=== PATIENT | male | born 1935 | race Caucasian/White ===

== ENCOUNTER 2020-03-23 23:08 | Inpatient (IN) | payer MEDICARE, BC ==
[~2020-03-23] VITALS: Ht 165.1 cm; Wt 75.7 kg
[2020-03-24 00:06] LABS: BASOPHILS ABSOLUTE AUTO 0.07 K/mm3 (0.00-0.23); BASOPHILS PERCENT AUTO 1 % (0-2); EOSINOPHILS ABSOLUTE AUTO 0.24 K/mm3 (0.00-0.68); EOSINOPHILS PERCENT AUTO 4 % (0-6); Hematocrit 44.1 % (37.0-53.0); IMMATURE GRAN ABSOLUTE AUTO 0.01 K/mm3 (0.00-0.10); IMMATURE GRAN PERCENT AUTO 0 % (0-1); LYMPHOCYTES PERCENT AUTO 23 % (21-46); MONOCYTES ABSOLUTE AUTO 0.71 K/mm3 (0.16-1.47); MONOCYTES PERCENT AUTO 12 % (4-13); Mean Corpuscular HGB 30.4 pg (26.0-34.0); Mean Corpuscular Volume 90 fL (80-100); NEUTROPHILS ABSOLUTE AUTO 3.45 K/mm3 (1.96-9.15); NEUTROPHILS PERCENT AUTO 60 % (41-73); Platelet Count 257 K/mm3 (150-400); RDW Coefficient Variation 12.7 % (11.7-14.2); Red Blood Cell Count 4.93 M/mm3 (4.30-5.90); White Blood Cell Count 5.78 K/mm3 (4.00-11.30)
[2020-03-24 00:33] LABS: Alanine Aminotransfer (ALT/SGP 23 U/L (12-78); Alk Phos 69 U/L (50-136); Anion Gap 6 mmol/L (6-16); Aspartate Aminotrans (AST/SGOT 18 U/L (12-37); Bilirubin, Total 0.3 mg/dL (0.1-1.0); Blood Urea Nitrogen 16 mg/dL (8-24); CO2, Blood 27 mmol/L (21-32); Calcium, Blood 9.7 mg/dL (8.5-10.1); Chloride, Blood 105 mmol/L (98-108); Creatinine, Blood 0.89 mg/dL (0.60-1.20); Globulin, Blood 4.1 g/dL (2.2-4.0); Glomerular Filtration Rate >60 (60-); Glucose, Blood 134 mg/dL (70-99); Potassium, Blood 3.8 mmol/L (3.5-5.5); Sodium, Blood 138 mmol/L (136-145); Total Protein, Blood 8.1 g/dL (6.4-8.2); Troponin I 0.023 ng/mL (0.000-0.040)
[2020-03-24] MEDS ORDERED: BENAZEPRIL-HCT1 EAC3 PO (00:57)
[2020-03-24] MEDS ORDERED: AMLODIPINE BES2.5 MG PO (00:58)
--- NOTE | 2020-03-24 03:59 | NUR ---
0350 PT ADMITTED TO ROOM 340 PER CART FROM ER; DENIES CHEST PAIN OR NAUSEA; ALERT AND ORIENTED X 4; ALL VALUABLES SENT HOME WITH ..
[2020-03-24] MEDS ORDERED: ASPIR 8181 M1 PO (04:09)
[2020-03-24] MEDS ORDERED: VITAMIN D31000 UNIT PO (04:09)
[2020-03-24] MEDS ORDERED: TOCO1000 PO (04:09)
--- NOTE | 2020-03-24 05:14 | NUR ---
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
[2020-03-24 08:42] LABS: CHOL/HDL RATIO 4.3; Cholesterol 191 mg/dL (50-200); HDL Cholesterol 44 mg/dL (>39); LDL/HDL RATIO 2.6; Low Density Lipoprotein Chol 114 mg/dL (0-110); Triglycerides 164 mg/dL (30-160); Very Low Density Lipoprot Chol 32 mg/dL (6-32)
--- NOTE | 2020-03-24 10:29 | NUR ---
Echocardiogram performed.
--- NOTE | 2020-03-24 10:58 | NUR ---
HE AND HIS ARE VISITING WITH THE PEANUT BUTTER MAKER NOW. JD HAS NOT HAD ANY CHEST PAIN OR PRESSURE SINCE ARRIVAL TO THIS ROOM FROM THE ED ABOUT 4 AM. HE DENIES SOB, NAUSEA OR DIZZINESS. HE AMBULATED TO THE BATHROOM AFTER BREAKFAST INDEPENDENTLY. HE IS VOIDING OK AND PASSED GAS. NO PAIN OR SOB ASSOCIATED WITH THE ACTIVITY. I NOTIFIED AND OF THE CRITICAL TROPONIN RESULT OF [id number]. I JUST RECEIVED NEW ORDERS. LOADING DOSE OF [employer] GIVEN. WILL RE-CHECK HIS VS AFTER HIS VISIT WITH THE PEANUT BUTTER MAKER.
--- NOTE | 2020-03-24 12:01 | NUR ---
Upon receiving an admit referral for spiritual care, I visit patient. Patient is sitting up in bed and alert. Patient's spouse, Anna, is bedside. Patient tells me about his health history and the symptoms that brought him into the hospital and the concerns they have. Patient and Anna then engage in a lengthy conversation about their spiritual beliefs and Anna voices several questions regaurd application of Scripture to various situations. They also explain about their lifestyle of living in an RV and traveling. I listen empathically, normalize their concerns and provide pastoral guidance and prayer. Patient and Anna respond well and show signs of being encouraged in their [place]. I will continue to remain available to patient and family.
--- NOTE | 2020-03-24 13:23 | NUR ---
VSS, METOPROLOL WAS STARTED TOO BUT HE REFUSED THE LIPITOR. HE AND HIS SAY THEY HAVE EACH CHOSEN NOT TO TAKE STATINS D/T THE MANY SIDE EFFECTS. HE ATE ALL HIS LUNCH AND IS NOW WATCHING TV.
--- NOTE | 2020-03-24 14:26 | NUR ---
HE REMAINS ASYMPTOMATIC. AT BEDSIDE. NEXT TROPONIN DRAW ABOUT 1540.
--- NOTE | 2020-03-24 16:35 | NUR ---
2ND CRITICAL TROPONIN RESULTED. I NOTIFIED .
--- NOTE | 2020-03-24 18:19 | NUR ---
JUST CAME BACK AND SPOKE WITH JD AND HIS . HE UNDERSTANDS THAT A [facility] SHEARER WILL SEE HIM TOMORROW. PATIENT REMAINS WITHOUT CP OR SOB. HE HAS NO DIFFICULTY EATING, DRINKING OR VOIDING. NO BM TODAY.
--- NOTE | 2020-03-25 04:15 | NUR ---
SHIFT SUMMARY ASSUMED CARE OF PT AT 1900. PT IS A/OX4, DENIES N/T IN EXTREMITES. HEART SOUNDS REGULAR, TELE HAS BEEN SINUS @ 61, DENIES CP, TROPONINS TRENDING DOWN. PT INDEPENDENT TO BATHROOM. PT ASKED FOR SHOWER THIS AM. NO ACUTE EVENTS DURING THE NIGHT. PT SLEPT T/O THE NIGHT. CALL LIGHT IN REACH, BED IN LOWEST POSTION.
[2020-03-25 08:38] LABS: International Normalized Ratio 0.97; Prothrombin Time Results 10.4 Sec (9.7-11.5)
--- NOTE | 2020-03-25 10:59 | NUR ---
HE WOKE UP FEELING FINE. NO CHEST PRESSURE. CONSULTED WITH THE PATIENT AND HIS . PATIENT CONSENTED TO AN ANGIOGRAM AND INTERVENTION. HE REMAINED NPO. HE SHOWERED. NO CHANGES ON TELE. HE WENT TO HEART CENTER BY W/C AT 0900. HIS TOOK ALL PERSONAL BELONGINGS WITH HER SINCE HE WILL NOT COME BACK TO THIS ROOM.
--- NOTE | 2020-03-25 13:56 | NUR ---
PT ARRIVED IN THE UNIT FROM [facility]PERINTENDENT VIA HOSPITAL BED, PT POST ANGIO WITH RIGHT RADIAL AND RIGHT GROIN SITE ACCESS, NO HEMATOMA/BLEEDING ON RIGHT RADIAL, MILD OOZING OF BLOOD IN THE RIGHT GROIN SITE SAND BAG IN PLACE. PT KEPT FLAT IN BED, VITALS HRR SINUS JONNA 50'S RBBB, BP SYSTOLIC 100'S, SATS ABOVE 93% RA, AFEBRILE. PT ALERT AND ORIENTED AT BASELINE, DENIES CHEST PAIN AT THIS TIME, AT BEDSIDE. PT HAD 3 STENTS PLACED DURING THE PROCEDURE. PT IN BED RESTING CALL LIGHTS IN REACH WILL MONITOR
--- NOTE | 2020-03-25 15:39 | NUR ---
Patient is lying flat in bed recovering from a procedure in the heart center. Patient's spouse, Anna, is bedside. She immediately tells me about the rollercoaster ride her day has been but how incredibly grateful she is that her out of surgery and doing well. Patient continues to have bleeding from the entry site in the groin area and so the is a bit busy but I do provide emotioanl support and a prayer of celebration and speedy recovery. I will continue to remain available to patient and family.
--- NOTE | 2020-03-25 17:56 | NUR ---
PT SUMMARY: POST ANGIO RECOVERY AT THIS TIME, VITALS STABLE. PT TO REMAIN FLAT IN BED FOR ANOTHER 4 HRS, RIGHT GROIN SITE STILL OOSING BLOOD HELD PRESSURE FOR [address] CAICEDO WAS CALLED AND MADE AWARE STOPPED BY TO SEE THE SITE ORDER TO PLACE ANOTHER CHG DRESSING, SAND BAG IN PLACE. AT BEDSIDE. ORDERED FINGER FOOD FOR DINNER. NO OTHER COMPLAINS FOR THE SHIFT, ABLE TO MAKE NEEDS KNOWN, WILL MONITOR
--- NOTE | 2020-03-26 04:21 | NUR ---
SUMMARY PT PLEASANT AND COOPERATIVE. A&O X4. TR BAND TO RIGHT RADIAL SITE WAS REMOVED PRIOR TO THE START OF MY SHIFT, CLEAR DRESSING IN PLACE, NO BLEEDING NOTICED, PT HAS SENSATION AND STRONG PULSE, ARM BOARD IN PLACE. RIGHT GROIN PUNCTURE SITE CLEAN WITH TEGADERM CHG DRESSING IN PLACE. NO BLEEDING NOTICED, FIVE POUND BAG ON RIGHT GROIN SITE TO PROVIDE PRESSURE DUE TO BLEEDING ON PREVIOUS SHIFT. AT 2100 SAT PT UP 15 DEGREES AT A TIME OVER A TWO HOUR PERIOD. ALL PULSES STRONG, EXTREMETIES WARM AND SENSATION INTACT. PT COMPLAINS OF MILD ABDOMINAL DISCOMFORT THAT WAS RELIEVED AFTER USING BEDPAN. NO COMPLAINTS OF CP OR SOB. PT SLEPT MOST THE NIGHT. CALL LIGHT IN REACH AND BED IN LOW POSITION.
--- NOTE | 2020-03-26 11:35 | NUR ---
Patient is sitting up in bed and alert. Patient's spouse, Anna, is bedside. I provide companionship and prayer. Patient and Anna voice their appreciation for the spiritual care they receive.
[2020-03-26] MEDS ORDERED: CLOP75 PO (13:41)
[2020-03-26] MEDS ORDERED: LIPITOR80 MG PO (13:41)
[2020-03-26] MEDS ORDERED: LISI20 PO (13:43)
[2020-03-26] MEDS ORDERED: METO25ER PO (13:53)
--- NOTE | 2020-03-26 15:00 | NUR ---
PT DISCHARGED TO [facility] TODAY WITH DISCHARGE ORDERS, PT SIGNED [employer] CONTRACT. DISCHARGE INSTRUCTIONS AND MEDICATIONS DISCLOSED WITHT PT AND BY DAVID, PRESCRIPTION SENT TO [facility]. RIGHT RADIAL AND GROIN SITE REMAINED INTACT WITH CLEAR DRESSING IN PLACE. PT WAS INSTRUCTED ABOUT SITE CARE. VITALS STABLE, PT DENIES ANY CHEST PAIN. ALL BELONGINGS SENT WITH PT. [facility]
== END 2020-03-26 14:35 | disposition home or self-care (01) | DRG 247 ==
LOC: ER 23:08 → MEDS 23:09 → PCU 03-25 11:35
PROVIDERS: Emergency Medicine; Internal Medicine Cardiovascular Disease; ADMIT Internal Medicine
PROC: 027136Z Dilation of Coronary Artery, Two Arteries with Three Drug-eluting Intraluminal Devices, Percutaneous Approach (ICD-10-PCS; principal; 2020-03-25)
PROC: B240ZZ3 Ultrasonography of Single Coronary Artery, Intravascular (ICD-10-PCS; 2020-03-25)
PROC: 4A033BC Measurement of Arterial Pressure, Coronary, Percutaneous Approach (ICD-10-PCS; 2020-03-25)
PROC: 4A023N7 Measurement of Cardiac Sampling and Pressure, Left Heart, Percutaneous Approach (ICD-10-PCS; 2020-03-25)
PROC: B2111ZZ Fluoroscopy of Multiple Coronary Arteries using Low Osmolar Contrast (ICD-10-PCS; 2020-03-25)
DX: I21.4 Non-ST elevation (NSTEMI) myocardial infarction (principal); I45.2 Bifascicular block; I10 Essential (primary) hypertension; Z87.891 Personal history of nicotine dependence; E78.5 Hyperlipidemia, unspecified; I25.10 Atherosclerotic heart disease of native coronary artery without angina pectoris
CPT/HCPCS: 36415; 71046; 80053; 80061; 83735; 83880; 84484; 85025; 85347; 85610; 86850; 86900; 86901; 92978; 92979; 93005; 93010; 93306; 93458; 93571; 99152; 99153; 99285-25; A9270-GY; C1725; C1753; C1760; C1769; C1874; C1887; C1894; C9600; C9601; G0378; J0153; J1644; J2250; J3010; J7030; J7040; J7050; Q9967